=== PATIENT | female | born 1995 | race Hispanic/Latino ===

== ENCOUNTER 2024-02-28 18:26 | Emergency (ER) | payer BC, OTHER ==
[2024-02-28 19:12] LABS: Absolute Basophils 0.1 K/uL (0-0.5); Absolute Eosinophils 0.1 K/uL (0-0.5); Absolute Lymphocytes (CBC) 2.2 K/uL (0.7-4.9); Absolute Monocytes 0.3 K/uL (0.1-1.3); Absolute Neutrophil 4.8 K/uL (1.8-8.0); Basophils % 0.9 % (0-1.3); Eosinophils % 1.3 % (0-4.4); Hematocrit 40.6 % (36.0-45.0); Hemoglobin 13.4 g/dL (12.0-15.0); Lymphocytes % 29.7 % (15.3-44.8); MCH 28.3 pg (27.0-35.0); MCHC 33.1 g/dL (32.0-36.0); MCV 85.4 fL (80-100); MPV 9.1 fL (7.6-11.3); Monocytes % 4.4 % (3.3-12.3); Neutrophils % 63.7 % (41.7-73.7); Nucleated Red Blood Cells % 0.1 % (0-0); Platelets 300 thou/uL (152-406); RBC Red Blood Cell Count 4.75 M/uL (3.86-4.86); Red Cell Distribution Width 14.5 % (12.1-15.2)
[2024-02-28 19:21] LABS: SARS-CoV-2 Antigen CONTROL BLUE LINE VIS/BG OK; SARS-CoV-2 Antigen Rapid Res Negative (Negative)
[2024-02-28 19:27] LABS: PT Prothrombin Time 10.5 SECONDS (9.4-12.5); Protime INR 0.94
[2024-02-28 19:28] LABS: D-Dimer 0.544 FEUug/mL (0-0.50)
--- NOTE | 2024-02-28 19:28 | RAD REPORT ---
EXAM DESCRIPTION: Louis Single View02/28/2024 7:22 pm CLINICAL HISTORY: Chest pain COMPARISON: 2013 FINDINGS: The lungs appear clear of acute infiltrate. The heart is normal size IMPRESSION: No acute abnormalities displayed
[2024-02-28 19:34] LABS: ALT/SGPT 25 U/L (13-56); Albumin 3.7 g/dL (3.4-5.0); Albumin/Globulin Ratio 0.9 (1.1-1.8); Alkaline Phosphatase 102 U/L (45-117); Anion Gap 5.5 mEq/L (5.0-15.0); BUN Blood Urea Nitrogen 17 mg/dL (7-18); Bicarbonate 28 mEq/L (21-32); Bilirubin Total 0.2 mg/dL (0.2-1.0); Globulin 4.1 g/dL (2.3-3.5); Glomerular Filtration Rate 91 ml/min (=/>90); Glucose Level 139 mg/dL (74-106); NT PRO-BNP 53 pg/mL (<125); Protein, Total 7.8 g/dL (6.4-8.2); Sodium Level 137 mEq/L (136-145); Troponin High Sensitivity 3.2 pg/mL (<58.9)
[2024-02-28 19:35] LABS: AST/SGOT 21 U/L (15-37); Bilirubin Direct < 0.2 mg/dL (0-0.2); C-Reactive Protein < 2.90 mg/L (<3.00); Magnesium 1.8 mg/dL (1.6-2.4)
[2024-02-28 19:36] LABS: Potassium 3.5 mEq/L (3.5-5.1)
[2024-02-28 20:35] LABS: Thyroid Stimulating Hormone 0.702 uIU/mL (0.358-3.740)
[2024-02-28 21:02] LABS: Specific Gravity 1.027 (1.005-1.030)
[2024-02-28 21:03] LABS: Specific Gravity 1.026 (1.005-1.030); Sqamous Epithelial <5 /HPF (None Seen); Urine Bacteria <20 /HPF (<20); Urine Bilirubin NEGATIVE (Negative); Urine Blood Negative (Negative); Urine Clarity Turbid (Clear); Urine Color Light-Yellow (Yellow); Urine Culture Reflex Order NOT NEEDED; Urine Glucose NEGATIVE (Negative); Urine Ketones NEGATIVE (Negative); Urine Micro Reflex YN NO BILL MICROSCOPIC; Urine Mucus Slight /HPF (None Seen); Urine Nitrite NEGATIVE (Negative); Urine Protein NEGATIVE (Negative); Urine RBC <5 /HPF (None Seen); Urine Urobilinogen Normal (Normal); Urine WBC None Seen /HPF (<5); Urine pH 5.5 (5.0-7.0)
--- NOTE | 2024-02-28 21:08 | EDPHYS ---
Physician Documentation [facility] Name: Michelle Day Age: 28 yrs Sex: Female : 1995 Arrival Date: 02/28/2024 Time: 18:26 Bed 14 Private MD: ED Physician Dulce Maria Koroma HPI: 02/27 18:50 This 28 yrs old Female presents to ER via Ambulatory with complaints of sb4 Shortness Of Breath. 18:50 patient reports chest pain, palpitations, and shortness of breath x 1 month. she did sb4 have a viral respiratory infection 2 weeks ago that has cleared up. she thought that maybe her symptoms were secondary to caffeine use or anxiety but she has cut down and caffeine and been taking her hydroxyzine which doesn't seem to help. she denies any current cough, fever, chills, abdominal pain, recent travel, swelling in extremities. Historical: - Allergies: 18:38 No Known Allergies; hb - Home Meds: 18:38 gabapentin oral [Active]; Hydroxyzine Oral [Active]; hb - PMHx: 18:38 Anxiety; hb - PSHx: 18:38 None; hb - Immunization history:: Adult Immunizations up to date. - Infectious Disease History:: Denies. - Social history:: Smoking status: Patient denies any tobacco usage or history of. ROS: 18:52 Constitutional: Negative for fever, chills, and weight loss, sb4 18:52 Cardiovascular: Positive for chest pain, palpitations, 18:52 Respiratory: Positive for shortness of breath, 18:52 All other systems are negative, Exam: 18:52 Constitutional: This is a well developed, well nourished patient who is awake, alert, sb4 and in no acute distress. Head/Face: Normocephalic, atraumatic. Eyes: Extra-ocular motions intact. Periorbital areas with no swelling, redness, or edema. ENT: Mucous membranes moist. Respiratory: Lungs have equal breath sounds bilaterally, clear to auscultation and percussion. No rales, rhonchi or wheezes noted. No increased work of breathing, no retractions or nasal flaring. Abdomen/GI: Soft, non-tender, no distension. Skin: Warm, dry with normal turgor. Normal color with no rashes, no lesions, and no evidence of cellulitis. MS/ Extremity: Pulses equal, no cyanosis. Neurovascular intact. Full, normal range of motion. Neuro: Awake and alert, GCS 15, oriented to person, place, time, and situation. Motor strength 5/5 in all extremities. Sensory grossly intact. 18:52 Cardiovascular: Rate: tachycardic, Rhythm: regular, Vital Signs: 18:36 BP 142 / 79; Pulse 110; Resp 18; Temp 97.8(TE); Pulse Ox 98% on R/A; Weight 97.52 kg; hb Height 5 ft. 2 in. ; Pain 7/10; 21:25 BP 132 / 62; Pulse 16; Resp 16; Temp 98; Pulse Ox 100% ; Pain 0/10; jm12 18:36 Body Mass Index 39.32 (97.52 kg, 157.48 cm) hb 18:36 Pain Scale: Adult hb 21:25 Pain Scale: Adult jm12 MDM: 18:40 Patient medically screened. sb4 21:06 Data reviewed: vital signs, nurses notes, lab test result(s), EKG, radiologic studies, sb4 and as a result, I will discharge patient. Counseling: I had a detailed discussion with the patient and/or guardian regarding the historical points, exam findings, and any diagnostic results supporting the discharge/admit diagnosis, the presence of at least one elevated blood pressure reading (>120/80) during this emergency department visit, lab results, radiology results, the need for outpatient follow up, a medical i d sales, to return to the emergency department if symptoms worsen or persist or if there are any questions or concerns that arise at home. 02/27 18:49 Order name: Basic Metabolic Panel; Complete Time: 20:35 sb4 02/27 18:49 Order name: CBC with Diff; Complete Time: 19:25 sb4 02/27 18:49 Order name: D-Dimer; Complete Time: 19:29 sb4 02/27 18:49 Order name: LFT's; Complete Time: 20:36 sb4 02/27 18:49 Order name: Magnesium; Complete Time: 20:36 sb4 02/27 18:49 Order name: NT PRO-BNP; Complete Time: 20:36 sb4 02/27 18:49 Order name: PT-INR; Complete Time: 19:29 sb4 02/27 18:49 Order name: Troponin HS; Complete Time: 20:36 sb4 02/27 18:49 Order name: SARS RAPID; Complete Time: 19:22 sb4 02/27 18:49 Order name: CRP; Complete Time: 20:36 sb4 02/27 18:49 Order name: UAM; Complete Time: 21:04 sb4 02/27 18:49 Order name: Test, Urine; Complete Time: 21:03 sb4 02/27 20:13 Order name: Add On-Lab; Complete Time: 20:36 sb4 02/27 20:18 Order name: Thyroid Stimulating Hormone; Complete Time: 20:36 EDMS 08 18:49 Order name: XRAY Chest (1 view); Complete Time: 19:29 sb4 02/27 18:49 Order name: Cardiac monitoring; Complete Time: 18:49 sb4 02/27 18:49 Order name: EKG - Nurse/Tech; Complete Time: 19:01 sb4 02/27 18:49 Order name: IV Saline Lock; Complete Time: 19:09 sb4 02/27 18:49 Order name: Labs collected and sent; Complete Time: 19:09 sb4 02/27 18:49 Order name: O2 Per Protocol; Complete Time: 18:49 sb4 02/27 18:49 Order name: O2 Sat Monitoring; Complete Time: 18:49 sb4 EC:04 Rate is 98 beats/min. Rhythm is regular, Normal Sinus Rhythm. HI interval is normal at sb4 138 msec. QRS interval is normal at 94 msec. QT interval is normal at 350 msec. No Q waves. T waves are Normal. No ST changes noted. Clinical impression: No evidence of ischemia. Interpreted by me. Reviewed by me. Administered Medications: No medications were administered Disposition: 19:41 Co-signature as Attending Physician, Dulce Maria Koroma MD I agree with the assessment and gb1 plan of care. I reviewed the patient's care provided by the Advanced Practice Provider and agree with the diagnosis and treatment plan. Disposition Summary: 02/28/24 21:07 Discharge Ordered Notes: Location: Home sb4 Problem: an ongoing problem sb4 Symptoms: have improved sb4 Condition: Stable sb4 Diagnosis - Chest pain, unspecified sb4 - Palpitations sb4 Followup: sb4 - With: Manoj Carrera MD - When: As needed - Reason: Recheck today's complaints, Re-evaluation by your physician Discharge Instructions: - Discharge Summary Sheet sb4 - Nonspecific Chest Pain, Adult sb4 - Palpitations sb4 Forms: - Patient Portal Instructions sb4 - Leadership Thank You Letter sb4 Signatures: Dispatcher [employer] Valentina Santos, GIO RN Soledad Hutton, PAMarileeC PAMarileeC sb4 Dulce Maria Koroma MD MD gb1
--- NOTE | 2024-02-28 21:08 | ER ---
Nurse's Notes [facility] Name: Michelle Day Age: 28 yrs Sex: Female : 1995 Arrival Date: 02/28/2024 Time: 18:26 Bed 14 Private MD: Diagnosis: Chest pain, unspecified;Palpitations Presentation: 02/27 18:36 Chief complaint: SOB and intermittent palpitations x 3 days. Coronavirus screen: At hb this time, the client does not indicate any symptoms associated with coronavirus-19. Ebola Screen: No symptoms or risks identified at this time. Initial Sepsis Screen: Does the patient meet any 2 criteria? No. Patient's initial sepsis screen is negative. Does the patient have a suspected source of infection? No. Patient's initial sepsis screen is negative. Risk Assessment: Do you want to hurt yourself or someone else? Patient reports no desire to harm self or others. Onset of symptoms was February 25, 2024. 18:36 Method Of Arrival: Ambulatory hb 18:36 Acuity: MARY 3 hb Historical: - Allergies: 18:38 No Known Allergies; hb - Home Meds: 18:38 gabapentin oral [Active]; Hydroxyzine Oral [Active]; hb - PMHx: 18:38 Anxiety; hb - PSHx: 18:38 None; hb - Immunization history:: Adult Immunizations up to date. - Infectious Disease History:: Denies. - Social history:: Smoking status: Patient denies any tobacco usage or history of. Screenin:57 [facility] ED Fall Risk Assessment (Adult) History of falling in the last 3 months, dd2 including since admission No falls in past 3 months (0 pts) Confusion or Disorientation No (0 pts) Intoxicated or Sedated No (0 pts) Impaired Gait No (0 pts) Mobility Assist Device Used No (0 pt) Altered Elimination No (0 pt) Score/Fall Risk Level 0 - 2 = Low Risk Oriented to surroundings, Maintained a safe environment, Educated pt \T\ family on fall prevention, incl call for assistance when getting out of bed, Assessed \T\ reinforced patient's understanding of fall precautions, Provided non-skid footwear, Hourly rounding (assess needs \T\ fall precautionary measures) done, Used ambulatory aids as needed (educated on \T\ assisted with), Used gait belt as appropriate. Abuse screen: Denies threats or abuse. Denies injuries from another. Nutritional screening: No deficits noted. Tuberculosis screening: No symptoms or risk factors identified. Assessment: 18:57 General: Appears in no apparent distress. Behavior is cooperative, appropriate for age, dd2 anxious. Pain: Complains of pain in back and chest. Neuro: No deficits noted. Cardiovascular: Rhythm is regular. Respiratory: Airway is patent Respiratory effort is even, unlabored, Breath sounds are clear bilaterally. GI: No deficits noted. : No deficits noted. EENT: No deficits noted. Derm: No deficits noted. Musculoskeletal: No deficits noted. Vital Signs: 18:36 BP 142 / 79; Pulse 110; Resp 18; Temp 97.8(TE); Pulse Ox 98% on R/A; Weight 97.52 kg; hb Height 5 ft. 2 in. ; Pain 7/10; 21:25 BP 132 / 62; Pulse 16; Resp 16; Temp 98; Pulse Ox 100% ; Pain 0/10; jm12 18:36 Body Mass Index 39.32 (97.52 kg, 157.48 cm) hb 18:36 Pain Scale: Adult hb 21:25 Pain Scale: Adult 12 ED Course: 18:31 Patient arrived in ED. gm2 18:32 [facility] sb4 18:32 Dulce Maria Koroma MD is Attending Physician. sb4 18:38 Triage completed. hb 18:40 Arm band placed on. hb 18:49 PER TAVERAS RN is Primary Nurse. dd2 18:57 Patient has correct armband on for positive identification. Placed in gown. Bed in low dd2 position. Call light in reach. Side rails up X 1. Provided Education on: labs. Client placed on continuous cardiac and pulse oximetry monitoring. NIBP monitoring applied. front desk monitor on. 19:08 Initial lab(s) drawn, by me, sent to lab. EKG done, by ED staff, reviewed by Soledad Griffin PA-C. Inserted saline lock: 20 gauge in right antecubital area, using aseptic technique. Blood collected. Flushed with 10 mL NS. 19:09 CRP Sent. ko1 19:09 SARS RAPID Sent. ko1 19:09 Basic Metabolic Panel Sent. ko1 19:09 D-Dimer Sent. ko1 19:09 CBC with Diff Sent. ko1 19:09 LFT's Sent. ko1 19:09 Magnesium Sent. ko1 19:09 NT PRO-BNP Sent. ko1 19:09 PT-INR Sent. ko1 19:09 Troponin HS Sent. ko1 19:09 COVID swab sent to lab. ko1 19:24 XRAY Chest (1 view) In Process Unspecified. EDMS 20:36 Add On-Lab Sent. sb4 21:07 Manoj Carrera MD is Referral Physician. sb4 21:26 IV discontinued, intact, bleeding controlled, No redness/swelling at site. Pressure jm12 dressing applied. Administered Medications: No medications were administered Outcome: : Discharge ordered by . sb4 21:27 Patient left the ED. [facility] Signatures: Dispatcher [employer] EDMS Valentina Turk, RN RN Xochilt Whiting RN RN ko1 Soledad Griffin, PA-C PA-C sb4 Catherine Guo 2 Nell Galvez RN RN jm12 PER TAVERAS RN RN dd2
--- NOTE | 2024-02-29 17:06 | EKG ---
Test Date: 2024-02-28 Test Time: 18:58:35 [employer]: LINDA MEASUREMENT RESULTS: Intervals: Rate: 98 MO: 138 QRSD: 94 QT: 350 QTc: 446 Carson: P: 51 MO: 138 QRS: 83 T: -8 INTERPRETIVE STATEMENTS: Normal sinus rhythm Nonspecific T wave abnormality Abnormal ECG Compared to ECG 03/11/2014 03:28:50 No significant changes Electronically Signed On 02-29-24 17:04:39 CDT by Manoj Carrera
== END 2024-02-28 21:27 | disposition home or self-care (01) ==
LOC: ER 18:26
DX: R07.9 Chest pain, unspecified (principal); R00.2 Palpitations; Z11.52 Encounter for screening for COVID-19
CPT/HCPCS: 36415; 71045; 80048; 80076; 81001; 81025; 83735; 83880; 84443; 84484; 85025; 85379; 85610; 86140; 87811; 93005; 99284